=== PATIENT | female | born 1955 | race Caucasian/White ===

== ENCOUNTER 2017-08-07 11:50 | Observation (INO) | payer OTHER ==
[~2017-08-07] VITALS: Ht 170.2 cm; Wt 59.9 kg
--- NOTE | 2017-08-07 13:50 | NUR ---
PT TO FLOOR VIA STRETCHER WITH EMT CREW FROM [facility]. PT ABLE TO AMBULATE TO BED AND RESTROOM ON OWN. PT DENIES PAIN RIGHT NOW "[facility] STATES THE PAIN WAS INTENSE. SON AND DAUGHTER IN ROOM.
--- NOTE | 2017-08-07 16:20 | NUR ---
PT WALKED TO BATHROOM, USED TOILET, HAD SURGICAL WIPE DOWN, AND RETURNED TO BED. CALL LIGHT IN REACH, PT DID NOT NEED ANYTHING ELSE
--- NOTE | 2017-08-07 17:47 | NUR ---
PT OFF FLOOR WITH EDDIE OROZCO FROM SURGERY.
--- NOTE | 2017-08-07 17:59 | NUR ---
PT OFF FLOOR TO SURGERY. NPO SINCE ARRIVAL. FAMILY IN ROOM. FROM [facility]. NO PAIN SINCE ARRIVAL.
--- NOTE | 2017-08-07 18:13 | NUR ---
PT IS CURRENTLY IN SURGERY.
--- NOTE | 2017-08-07 19:37 | NUR ---
08/07/171936 Celena Nguyen OXYGEN SATURATION REMAINS 100% ON 10L VIA MASK. OXYGEN REDUCED TO 6L VIA MASK. PT REPORTS "MY LEGS ARE NUMB". EDUCATION DONE. PT CONTINUES TO DENY PAIN.
--- NOTE | 2017-08-07 20:20 | NUR ---
PATIENT IS BACK FROM SURGERY. BEDSIDE REPORT RECEIVED FROM PACU NURSE KEMI. PATIENT TRANSFER TO HOSPITAL BED BY HERSELF WITH NO DIFFICULTY. PATIENT DENIES PAIN AND NAUSEA. PATIENT ASSISTED TO BATHROOM AND VOIDED WITH NO DIFFICULTIES. DENIES DYSURIA AT THIS TIME. PATIENT SITTING AT BEDSIDE EATING JELLO AND DRINKING JUICE. LUNCH BOX ORDER. PATIENT WANTED TO GO HOME SINCE PATIENT WAS TOLD THAT SHE HAS DISCHARGE ORDER. SUGGESTED TO PATIENT THAT IT IS BETTER FOR HER TO STAY OVERNIGHT TO BE MONITOR AND BE SAFE. PATIENT AGREED TO STAY. AND SON IN ROOM AT THIS TIME.
--- NOTE | 2017-08-07 21:29 | NUR ---
PATIENT TOLERATED PO FLUID AND FOOD WELL. DENIES PAIN AND NAUSEA. NO APPARENT DISTRESS. IV SITE PATENT AND FLUID INFUSING. PATIENT RESTING IN BED AT THIS TIME. REQUESTED TO BE LEFT TO REST.
--- NOTE | 2017-08-07 22:05 | NUR ---
IN TO ROOM TO CHECK ON PATIENT. PATIENT APPEARS TO BE SLEEPING, RR EVEN/UNLABORED. NO APPARENT DISTRESS.
--- NOTE | 2017-08-07 23:35 | NUR ---
PATIENT WAS ASSISTED TO BATHROOM TO VOID. DENIED PAIN AND NAUSEA. NO APPARENT DISTRESS. WILL CONITNUE TO MONITOR
--- NOTE | 2017-08-08 02:25 | NUR ---
PATIENT WAS UP TO BATHROOM TO VOID. DENIED PAIN. NO DYSURIA. IV FLUID INFUSING. NO APPARENT DISTRESS. WILL CONTINUE TO MONITOR.
--- NOTE | 2017-08-08 04:08 | NUR ---
PATIENT RESTING IN BED AT THIS TIME. APPEARS TO BE SLEEPING. RR EVEN/UNLABORED. NO APPARENT DISTRESS NOTED.
[2017-08-08] MEDS ORDERED: BACTRIM DS TAB1 EACH PO (06:10)
[2017-08-08] MEDS ORDERED: PERCOCET 5-3251 EACH PO (06:11)
[2017-08-08] MEDS ORDERED: PYRIDIUM200 MG PO (06:12)
--- NOTE | 2017-08-08 06:15 | NUR ---
PATIENT HAD AN UNEVENTFUL NIGHT. PATIENT DENIES PAIN SINCE COMING BACK FROM SURGERY. PATIENT HAS VOIDED. MILD DISCOMFORT DURING MICTURATION. PATIENT TOLERATED PO FLUID AND FOOD WELL. DISCHARGE ORDER IN. PATIENT CAN GO HOME ANYTIME THIS AM.
--- NOTE | 2017-08-08 07:14 | EKG ---
[facility] [address] [facility] [place], [place] [address] Signed Normal sinus rhythm Normal ECG No previous ECGs available Confirmed by HONG CLAY MD ([id number]) on 08/08/2017 7:14:36 AM Electronically Signed By: HONG CLAY MD 08/08/17 0714 PATIENT NAME: KEITH GRUBER EDWARD Electrocardiogram DATE OF : 51 PHYSICIAN: HONG CLAY MD REPORT #: [id number] REPORT IS CONFIDENTIAL AND NOT TO BE RELEASED WITHOUT AUTHORIZATION
--- NOTE | 2017-08-08 07:48 | NUR ---
MORNING ASSESSMENT DONE. PATIENT TO BE DISCHARGED THIS MORNING. FLU SHOT TO BE ADMINISTERED. PATIENT DENIES PAIN AT REST, SOME DISCOMFORT WITH URINATION. PATIENT ATE BREAKFAST WITH NO NAUSEA/ISSUES. RIGHT HAND SALINE LOCK REMOVED WITH CATHETER INTACT.
--- NOTE | 2017-08-08 12:51 | OR ---
[facility] [address] [place], [place] [address] Signed DATE OF PROCEDURE: 08/07/17 PREOPERATIVE DIAGNOSIS: A 6-mm distal right ureterolithiasis. POSTOPERATIVE DIAGNOSIS: A 6-mm distal right ureterolithiasis. PROCEDURES PERFORMED Diagnostic cystoscopy with right retrograde pyelogram. Right ureteroscopy with basket extraction of stone. Insertion of a right ureteral stent. SURGEON: Chuck Oliver MD. ANESTHESIA: General. ESTIMATED BLOOD LOSS: Minimal. COMPLICATIONS: None. SPECIMENS: Right ureteral calculus sent to the lab for stone analysis. DRAINS A 6 by variable length contour double-J ureteral stent inserted in the right ureter. INDICATIONS FOR PROCEDURE Keith is a very pleasant 62-year-old female with no previous history of nephrolithiasis who presented to the emergency department in [place] early in the morning of August 07 with a less than 24-hour history of intermittent severe right lower quadrant discomfort with associated nausea and vomiting. She was evaluated in the emergency department in [place] and underwent a CT scan which revealed some right hydronephrosis along with an obstructing 6-mm distal right ureteral calculus. Also noted were bilateral renal calculi, the largest one measuring 7 mm in the upper pole of the left kidney. Urinalysis revealed the presence of white blood cells and bacteria, so the emergency department physician contacted us for more definitive care. She was transferred from [place] to [facility] in anticipation of definitive stone extraction. OPERATIVE FINDINGS On cystoscopy, there was no evidence of any suspicious masses, lesions, or stones. Bilateral ureteral orifices are in their normal anatomic location. There is no efflux coming from the right ureteral orifice. Right retrograde pyelogram revealed a filling defect in the distal right ureter Electronically Signed By: CHUCK OLIVER MD 08/08/17 1251 PATIENT NAME: KEITH GRUBER OPERATIVE REPORT DATE OF : 51 PHYSICIAN: CHUCK OLIVER MD REPORT #: [id number] REPORT IS CONFIDENTIAL AND NOT TO BE RELEASED WITHOUT AUTHORIZATION [facility] [address] [place], [place] [address] Signed consistent with the 6-mm distal right ureteral calculus. Also noted was a mild narrowing of the distal right ureter just caudal to the location of the stone. Right ureteroscopy was performed and I did notice some slight narrowing of the distal right ureter, which did make it somewhat difficult for me to pass the semi-rigid ureteroscope cranially towards the stone. I made the decision to convert from a semi-rigid ureteroscopy to a flexible ureteroscopy. Using a flexible ureteroscope, the stone was visualized and basketed using a Zero tip basket. The stone was then gently removed from the ureter without any difficulty. A 6 by variable length contour double-J ureteral stent was inserted in the patient's right ureter under direct visualization without difficulty. DESCRIPTION OF PROCEDURE After informed consent was obtained, the patient was taken back to the operating room. She was placed in the dorsal lithotomy position and her genitalia were prepped and draped in standard sterile fashion. Using a 30 degree lens on a 22-Lao introducer, a rigid cystoscope was inserted through the patient's urethra and into her bladder under direct visualization. Panendoscopic views of the bladder were then obtained. Please see above findings. Attention was then turned to the right ureteral orifice. A cone-tipped catheter was advanced to the level of the right UO and a right retrograde pyelogram was performed. Please see the above findings. I then attempted to pass a semi-rigid ureteroscope into the right ureter and up to the level of the stone. Due to the mild narrowing of the right distal ureter, I was unable to successfully reach the stone. I then removed the semi-rigid ureter o scope. Using a cystoscope, I cannulated the right ureter and passed the Sensor wire up into the right collecting system. Fluoroscopy confirmed adequate placement of the wire. Over the wire, an 11/13 ureteral access sheath was passed over the wire and into the right ureter. I was able to meet some mild resistance due to the narrowing of the ureter; however, the sheath was ultimately passed successfully under fluoroscopic guidance. I performed another retrograde pyelogram to confirm placement of the sheath. I then passed the flexible ureteroscope into the patient's right ureter and was ultimately able to visualize the stone. The stone was then basketed using a Zero tip basket without difficulty. The stone was then placed in a specimen cup and sent to the lab f or stone analysis. I reinserted the Sensor wire via cystoscope again and confirmed placement. Over the wire, a 6 by variable length contour double-J ureter stent was inserted into the right ureter under direct visualization without difficulty. Fluoroscopy confirmed adequate placement of the stent with a proximal coil within the right renal pelvis. Cystoscopy confirmed placement of the stent with a distal coil within the bladder. The patient's bladder was then drained and the procedure was then terminated. The patient tolerated the procedure well without any complication. She will now be transferred to the post anesthesia care unit in stable condition. DISPOSITION Electronically Signed By: CHUCK OLIVER MD 08/08/17 1251 PATIENT NAME: KEITH GRUBER OPERATIVE REPORT DATE OF : 51 PHYSICIAN: CHUCK OLIVER MD REPORT #: [id number] REPORT IS CONFIDENTIAL AND NOT TO BE RELEASED WITHOUT AUTHORIZATION [facility] [address] [place] [place] [address] Signed The patient will be discharged to home later this evening when she is tolerating p.o. intake. I discussed the details of the procedure with the patient when she was awake and answered all of her questions. She has agreed to contact the clinic today to schedule an appointment in approximately 2 weeks to undergo cystoscopy with right ureteral stent extraction. She will be sent home with Percocet 5/325, #30 as needed for pain along with Bactrim Double Strength for total of 5 days. MD ROSALINE Wong/Modl /[id number] cc: Rey Sy MD Electronically Signed By: CHUCK OLIVER MD 08/08/17 1251 PATIENT NAME: KEITH GRUBER EDWARD OPERATIVE REPORT DATE OF : 51 PHYSICIAN: CHUCK OLIVER MD REPORT #: [id number] REPORT IS CONFIDENTIAL AND NOT TO BE RELEASED WITHOUT AUTHORIZATION
== END 2017-08-08 08:15 | disposition home or self-care (01) ==
LOC: MS 11:50
PROVIDERS: ADMIT Urology
PROC: BT1D1ZZ Fluoroscopy of Right Kidney, Ureter and Bladder using Low Osmolar Contrast (ICD-10-PCS; 2017-08-07)
PROC: 0T768DZ Dilation of Right Ureter with Intraluminal Device, Via Natural or Artificial Opening Endoscopic (ICD-10-PCS; principal; 2017-08-07 18:00)
PROC: 0TC68ZZ Extirpation of Matter from Right Ureter, Via Natural or Artificial Opening Endoscopic (ICD-10-PCS; 2017-08-07 18:00)
DX: N13.2 Hydronephrosis with renal and ureteral calculous obstruction (principal); R82.71 Bacteriuria; Z79.1 Long term (current) use of non-steroidal anti-inflammatories (NSAID); Z23 Encounter for immunization
CPT/HCPCS: 00910; 71010; 74420; 82365; 90674; 93005; 93010; 94762; 96374; C2617; G0008; G0378; J0330; J0744; J1100; J1885; J2250; J2405; J2704; J2765; J3010; J7030; J7120; Q9967

== ENCOUNTER 2022-11-14 09:03 | Day surgery (SDC) | payer MEDICARE, OTHER ==
[~2022-11-14] VITALS: Ht 170.2 cm; Wt 61.3 kg
[~2022-11-14 09:03] MED LIST: BACTRIM DS TAB1 EACH PO; CITRACAL + D M1 EACH PO; COZAAR50 MG PO; FAMOTIDINE20 MG PO; HYDROCHLOROTHIA25 MG PO; MELOXICAM5 MG PO; OMEGA-3 + VITA1 EAC2 PO; PERCOCET 5-3251 EACH PO; PYRIDIUM200 MG PO; RESTASIS MULTI5.5 ML OP
[2022-11-14] MEDS ORDERED: GLUCOSAMINE CH1 EAC2 PO (09:33)
--- NOTE | 2022-11-14 12:23 | NUR ---
11/14/22 1223 Cecilia Arellano 1216 PATIENT ARRIVES TO PACU AWAKE BUT DROWSY. DENIES PAIN OR NAUSEA. REPOSITIONS SELF TO BACK. HOB ELEVATED. RESP EVEN AND UNLABORED, OXYGEN OFF, ROOM AIR SATS 100%.
--- NOTE | 2022-11-14 16:27 | OR ---
[facility] [address] [place], [place] [address] Signed DATE OF OPERATION: 11/14/2022 SURGEON: Doyle Velasco MD PREOPERATIVE DIAGNOSIS: Colon screening. POSTOPERATIVE DIAGNOSES: 1. Scattered diverticula. 2. Internal hemorrhoids. PROCEDURE: Total colonoscopy to cecum. ANESTHESIA: Intravenous sedation; fentanyl 150 mcg and Versed 7 mg. INDICATIONS: A 67-year-old white woman is a patient of Dr. Flores in [place], [place]. She last underwent colonoscopy in about 1999 in the [facility], which was said to be normal. She has no family history of colon cancer. She is currently asymptomatic. She is admitted to undergo screening colonoscopy. She understands the risks of bleeding, infection, and perforation. FINDINGS: The prep was good. Complete colonoscopy was undertaken to the cecum without question. She had no evidence of polyps or cancer or colitis, but did have scattered diverticula. She had internal hemorrhoids as well. DESCRIPTION OF PROCEDURE: The patient was brought to the endoscopy suite and placed in lateral decubitus position given intravenous sedation to the point of slurred speech and nystagmus. Digital rectal examination was normal. An Olympus video colonoscope was passed into the rectum and manipulated throughout the colon ultimately intubating the cecum itself. The ileocecal valve and appendiceal orifice were normal. Scope was withdrawn and examination throughout showed only scattered diverticula, certainly none well concentrated or extensive. The rectum was normal except for internal hemorrhoidal changes. Scope was removed. The patient was taken to the recovery room in good condition. Electronically Signed By: DOYLE VELASCO MD 11/14/22 1627 PATIENT NAME: KEITH GRUBER EDWARD OPERATIVE REPORT DATE OF : 51 REPORT #: [id number] PHYSICIAN: DOYLE VELASCO MD PCP: LAQUITA FLORES DO REPORT IS CONFIDENTIAL AND NOT TO BE RELEASED WITHOUT AUTHORIZATION [facility] [address] [place], [place] [address] Signed CONCLUDING DIAGNOSIS: Scattered diverticula and internal hemorrhoids. PLAN: Recommend high-fiber diet or fiber supplement, Metamucil or Citrucel. Recommend repeat colonoscopy in 10 years, sooner if symptoms should occur. She will return to the ongoing care of Dr. Flores in [place]. MD DINORA Cuevas/MON[place]NA /[id number] cc: Dr. Mark Magdaleno [place] Copies: ~ Electronically Signed By: DOYLE VELASCO MD 11/14/22 1627 PATIENT NAME: KEITH GRUBER EDWARD OPERATIVE REPORT DATE OF : 51 REPORT #: [id number] PHYSICIAN: DOYLE VELASCO MD PCP: LAQUITA FLORES DO REPORT IS CONFIDENTIAL AND NOT TO BE RELEASED WITHOUT AUTHORIZATION
== END 2022-11-14 13:15 | disposition home or self-care (01) ==
LOC: OPS 09:03 → DS 09:03 → OPS 10:00 → DS 14:30
PROVIDERS: ATTEND Surgery
PROC: 0DJD8ZZ Inspection of Lower Intestinal Tract, Via Natural or Artificial Opening Endoscopic (ICD-10-PCS; principal; 2022-11-14 10:30)
DX: Z12.11 Encounter for screening for malignant neoplasm of colon (principal); K57.30 Diverticulosis of large intestine without perforation or abscess without bleeding; K64.8 Other hemorrhoids; I10 Essential (primary) hypertension; Z87.442 Personal history of urinary calculi; Z78.0 Asymptomatic menopausal state; Z88.8 Allergy status to other drugs, medicaments and biological substances
CPT/HCPCS: 99153; G0500; J2250; J3010; J7121